=== PATIENT | male | born 1970 | race Caucasian/White ===

== ENCOUNTER 2016-12-13 18:14 | Emergency (ER) | payer BC ==
[~2016-12-13] VITALS: Ht 185.4 cm; Wt 83.0 kg
[2016-12-13 18:16] VITALS: BP 145/90; PULSE 80; RESP 20; TEMP 97.9; O2SAT 96
--- NOTE | 2016-12-13 19:00 | PD ---
Physical Exam Date Seen by Provider: Dec 13, 2016 Time Seen by Provider: 18:57 Narrative Patient seen in Triage with Hx. injury to base of Left 3rd finger with Oyster Shucking Knife last night. Patient now has pain, swelling and decreased ROM of the same finger. Patient was seen by his PCP and referred here to see hand surgeon, Dr. Beard, who has been spoken to already by PCP. Vitals Stable. Patient awaiting bed placement. Data Data Last Documented VS Vital Signs Date Time Temp Pulse Resp B/P Pulse Ox O2 Delivery O2 Flow Rate FiO2 12/13/16 18:16 97.9 80 20 145/90 96 Room Air [facility] Medical Record Reviewed: Yes Supervised Visit with SHABBIR: Yes Condition: Stable Gomez Banda Dec 13, 2016 19:00
== END 2016-12-13 21:07 | disposition left against medical advice (07) ==
LOC: NED 18:14
DX: S04.32XA Injury of trigeminal nerve, left side, initial encounter (principal); W26.0XXA Contact with knife, initial encounter; Y93.9 Activity, unspecified; Y92.9 Unspecified place or not applicable; Y99.9 Unspecified external cause status
CPT/HCPCS: 99282

== ENCOUNTER 2016-12-13 22:01 | Inpatient (IN) | payer BC ==
[~2016-12-13] VITALS: Ht 185.4 cm; Wt 82.0 kg
[2016-12-13 22:02] VITALS: BP 161/91; PULSE 74; RESP 18; TEMP 97.9; O2SAT 97
[2016-12-13] MEDS ORDERED: SODIUM CHLOR 0.9% 1000 ML INJ 1,000 ML IV SCH (22:30)
[2016-12-13 22:56] LABS: AUTOMATED NEUTROPHIL # 4.1 TH/MM3 (1.8-7.7); BASOPHIL % 0.5 % (0.0-2.0); EOSINOPHIL # 0.4 TH/MM3 (0-0.4); EOSINOPHIL % 4.5 % (0.0-4.0); HEMATOCRIT 44.4 % (39.0-51.0); HEMO FLAGS DIFF FINAL; LYMPH % 38.8 % (9.0-44.0); LYMPHOCYTE # 3.2 TH/MM3 (1.0-4.8); MEAN CELL VOLUME 94.1 FL (80.0-100.0); MEAN CORPUSCULAR HEMOGLOBIN 32.7 PG (27.0-34.0); MEAN CORPUSCULAR HGB CONC 34.8 % (32.0-36.0); MONO % 6.7 % (0.0-8.0); NEUT % 49.5 % (16.0-70.0); PLATELET COUNT 197 TH/MM3 (150-450); RED BLOOD COUNT 4.72 MIL/MM3 (4.50-5.90); RED CELL DISTRIBUTION WIDTH 13.2 % (11.6-17.2); WHITE BLOOD COUNT 8.2 TH/MM3 (4.0-11.0)
[2016-12-13 23:10] LABS: BICARBONATE 29.2 MEQ/L (21.0-32.0); POTASSIUM 4.1 MEQ/L (3.5-5.1)
--- NOTE | 2016-12-13 23:19 | PD ---
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 Duration about 1-1/2 days. He has had increasing pain in the left hand with some pain extending to the third digit. Pain is constant. It's worse with range of motion. He's had no fever. His last tetanus was 7 years prior. He saw his primary care provider who advised him to come to the ER immediately to be seen by hand surgery. [facility] Past Medical History Medical History: Denies Significant Hx Diminished Hearing: No Tetanus Vaccination: Unknown Influenza Vaccination: No Past Surgical History Oral Surgery: Yes (WISDOM TEETH) Other Surgery: Yes (DEBRIDEMENT OF RIGHT FOREARM) Social History Alcohol Use: Yes (SOCIALLY) Tobacco Use: Yes (1PPD) Substance Use: No Allergies-Medications (Allergen,Severity, Reaction): Coded Allergies: Codeine (Verified Allergy, Severe, 12/13/16) Reported Meds & Prescriptions Reported Meds & Active Scripts Active No Active Prescriptions or Reported Medications Review of Systems Except as stated in HPI: all other systems reviewed are Neg General / Constitutional: No: Fever Skin: Positive Lesions Physical Exam Narrative GENERAL: 46-year-old male well-nourished well-developed SKIN: Focused skin assessment warm/dry. Approximate 1 cm linear lesion along the palmar overlying the third metacarpal with minimal swelling extending to the proximal portion of the middle phalanx. HEAD: Atraumatic. Normocephalic. EYES: Pupils equal and round. No scleral icterus. No injection or drainage. ENT: No nasal bleeding or discharge. Mucous membranes pink and moist. NECK: Trachea midline. No JVD. CARDIOVASCULAR: Regular rate and rhythm. No murmur appreciated. RESPIRATORY: No accessory muscle use. Clear to auscultation. Breath sounds equal bilaterally. GASTROINTESTINAL: Abdomen soft, non-tender, nondistended. Hepatic and splenic margins not palpable. MUSCULOSKELETAL: No obvious deformities. No clubbing. Approximate 1 cm linear lesion along the palmar overlying the third metacarpal with minimal swelling extending to the proximal portion of the third middle phalanx. Minimal flexion of the left third digit at rest noted. +Tenderness with passive ROM. No erythema. NEUROLOGICAL: Awake and alert. No obvious cranial nerve deficits. Motor grossly within normal limits. Normal speech. PSYCHIATRIC: Appropriate mood and affect; insight and judgment normal. Data Data Last Documented VS Vital Signs Date Time Temp Pulse Resp B/P Pulse Ox O2 Delivery O2 Flow Rate FiO2 12/13/16 22:02 97.9 74 18 161/91 97 Vital signs reviewed Orders Basic Metabolic Panel (Bmp) (12/13/16 22:25) Complete Blood Count With Diff (12/13/16 22:25) Iv Access Insert/Monitor (12/13/16 22:25) Sodium Chlor 0.9% 1000 Ml Inj (Ns 1000 M (12/13/16 22:30) Cefepime Inj (Maxipime Inj) (12/13/16 23:45) Doxycycline Inj (Vibramycin Inj) (12/13/16 23:45) Admit Order (Ed Use Only) (12/14/16 00:13) Consult Hand Surgery (12/14/16 ) Labs Laboratory Tests Test 12/13/16 22:41 White Blood Count 8.2 TH/MM3 Red Blood Count 4.72 MIL/MM3 Hemoglobin 15.4 GM/DL Hematocrit 44.4 % Mean Corpuscular Volume 94.1 FL Mean Corpuscular Hemoglobin 32.7 PG Mean Corpuscular Hemoglobin 34.8 % Concent Red Cell Distribution Width 13.2 % Platelet Count 197 TH/MM3 Mean Platelet Volume 7.4 FL Neutrophils (%) (Auto) 49.5 % Lymphocytes (%) (Auto) 38.8 % Monocytes (%) (Auto) 6.7 % Eosinophils (%) (Auto) 4.5 % Basophils (%) (Auto) 0.5 % Neutrophils # (Auto) 4.1 TH/MM3 Lymphocytes # (Auto) 3.2 TH/MM3 Monocytes # (Auto) 0.5 TH/MM3 Eosinophils # (Auto) 0.4 TH/MM3 Basophils # (Auto) 0.0 TH/MM3 CBC Comment DIFF FINAL Differential Comment Sodium Level 140 MEQ/L Potassium Level 4.1 MEQ/L Chloride Level 105 MEQ/L Carbon Dioxide Level 29.2 MEQ/L Anion Gap 6 MEQ/L Blood Urea Nitrogen 17 MG/DL Creatinine 0.88 MG/DL Estimat Glomerular Filtration 94 ML/MIN Rate Random Glucose 152 MG/DL Calcium Level 8.3 MG/DL Erythrocyte Sedimentation Rate 1 mm/hr C-Reactive Protein 0.37 MG/DL MDM Medical Decision Making Medical Screen Exam Complete: Yes Emergency Medical Condition: Yes Differential Diagnosis Cellulitis, flexor tenosynovitis, abscess Narrative Course CBC & BMP Diagram 12/13/16 22:41 Case d/w Dr Beard of hand sx who requests NPO p MN for operative repair in morning. Cefepime and doxycycline started. D/w Emiliano Escobar, admit to Dr Griffin. Diagnosis Primary Impression: Flexor tenosynovitis of finger Admitting Information Admitting Physician Requests: Observation Scripts No Active Prescriptions or Reported Meds Nnamdi Wheeler MD Dec 13, 2016 23:19
[2016-12-13] MEDS ORDERED: DOXYCYCLINE INJ 200 MG in SODIUM CHLOR 0.9% 250 ML INJ 250 ML IV ONE (23:45)
[2016-12-13] MEDS ORDERED: CEFEPIME INJ 2,000 MG in SODIUM CHLORIDE 0.9% INJ 100 ML IV ONE (23:45)
[2016-12-14] VITALS (7 sets, daily range): BP systolic 118–140; BP diastolic 72–86; PULSE 67–77; RESP 14–19; TEMP 96.3–98.1; O2SAT 94–98
--- NOTE | 2016-12-14 01:01 | RADRPT ---
EXAM DATE/TIME: 12/14/2016 00:29 [place] COMPARISON: No previous studies available for comparison. INDICATIONS : Patient stuck oyster knife into hand on accident. Pain and small entry laceration at 3rd MCPJ on ante rior aspect of hand. MEDICAL HISTORY : None. SURGICAL HISTORY : None. ENCOUNTER: Initial ACUITY: 2 days PAIN SCORE: 3/10 LOCATION: Left Hand FINDINGS: Three views of the left hand demonstrate no fracture or dislocation. Mineralization is within normal limits and there is no significant arthropathy. No soft tissue abnormality or radiopaque foreign body is identified. CONCLUSION: No acute abnormality is identified and no radiopaque foreign body is seen. Emiliano Azul MD on December 14, 2016 at 0:57 Board Certified Radiologist. This report was verified electronically.
[2016-12-14] MEDS: SODIUM CHLOR 0.9% 1000 ML INJ 1,000 ML IV SCH ×3 (01:11→19:51)
[2016-12-14] MEDS ORDERED: SODIUM CHLORIDE 0.9% FLUSH 10 ML FLUSH IV FLUSH PRN (01:15)
[2016-12-14] MEDS ORDERED: ONDANSETRON HCL 4 MG/2 ML VIAL IVP PRN (01:15)
[2016-12-14] MEDS ORDERED: MAGNESIUM HYDROXIDE SUSP 30 ML CUP PO PRN (01:15)
[2016-12-14] MEDS ORDERED: SENNOSIDES 8.6 MG TAB PO PRN (01:15)
[2016-12-14] MEDS ORDERED: NALOXONE HCL 0.4 MG/ML AMP IV PRN (01:15)
[2016-12-14] MEDS ORDERED: TEMAZEPAM 15 MG CAP PO PRN (01:15)
[2016-12-14] MEDS ORDERED: CEFEPIME INJ 2,000 MG in SODIUM CHLORIDE 0.9% INJ 100 ML IV SCH (08:00)
[2016-12-14] MEDS: SODIUM CHLORIDE 0.9% FLUSH 10 ML FLUSH IV FLUSH SCH ×2 (08:51→19:50)
--- NOTE | 2016-12-14 08:53 | MH ---
cc: VERN GRIFFIN DATE OF ADMISSION 12/14/2016 DATE OF 1970 CHIEF COMPLAINT Left hand injury accidental TRAVEL IN THE LAST 30 DAYS None HISTORY OF PRESENT ILLNESS This is a pleasant 46 year-old white male who accidentally stabbed himself in the palm of his hand with a knife while attempting to open oysters. The patient is, according to the record, right hand dominant. Since the accidental stabbing has occurred, the patient has noted consistent constant pain with swelling in the middle finger and decreased range of motion. The patient did see his PCP who recommended he come to the emergency room and be seen. The patient denies any chest pain. No shortness of breath. No headache. No fevers. No nausea, vomiting, diarrhea or constipation. The patient notes that he has been fairly healthy all of his life and has been seen by the Ortho hand consulting physician for hand surgery this a.m. He is currently NPO. MEDICAL HISTORY Includes: 1. Tobacco abuse 2. Social ETOH otherwise no acute issues. PAST SURGICAL HISTORY 1. [place] teeth 2. Debridement of the right forearm ALLERGIES CODEINE MEDICATIONS None FAMILY HISTORY Parents are healthy. No particular medical issues. SOCIAL HISTORY The patient is , currently lives with his . A pack a day tobacco user. Social alcohol intake. No illicit drugs. REVIEW OF SYSTEMS A 12-point review was obtained, positives include left hand pain with some mild middle finger edema, some limited range of motion in that finger. Otherwise negative and unremarkable systems. PHYSICAL EXAM VITAL SIGNS: Temp is 97.1, pulse 70, respirations 14, blood pressure 129/74. Initially on ER admission 161/91, but has come down on its own without any treatment regimen. O2 sat 96% on room air. GENERAL: Well-nourished, well-developed white male who looks to be his stated age resting on the stretcher. SKIN: Warm and dry. An approximately 1 cm stab wound with minimal swelling at this site. Mild swelling noted at the proximal portion of the middle phalange. HEENT: Atraumatic, normocephalic. PERRLA 3. Mucous membranes are pink and moist. NECK: Midline. CARDIOVASCULAR: Regular rate and rhythm. No murmurs, rubs or gallops heard. RESPIRATORY: Essentially clear anteriorly and posteriorly. No wheezes, rales or rhonchi. ABDOMEN: Soft, nontender and nondistended. Active bowel sounds. MUSCULOSKELETAL: He moves his right arm and both legs with purpose. He can move the other fingers on his left hand. Currently no erythema. NEUROLOGIC: He is alert and oriented. Anxious to get out of the hospital as soon as possible. Speech is normal. PSYCHIATRIC: Affect and mood are normal. DIAGNOSTIC DATA WBC count 8.2, RBC 4.72, hemoglobin 15.4, hematocrit 44.4, platelet count 197. All other blood counts are normal except for eosinophil percentage 4.5. Chemistry sodium 140, potassium 4.1, chloride 105, random glucose is 152, calcium is 8.3, C-reactive protein 0.37. IMAGING Hand x-ray shows no acute abnormality, no foreign body seen. ASSESSMENT AND PLAN 1. Left hand middle phalange cellulitis with possible flexor tenosynovitis with possible abscess. 2. Tobacco abuse 3. ETOH use 4. Hyperglycemia mild without known diabetes PLAN Our plan is to admit for inpatient status due to surgical procedure. Ortho has been consulted for their expert opinion. The patient is NPO and plan is for surgical procedure this a.m. to open and irrigate. In the emergency room, the patient has had initial lab for monitoring. He has received Cefepime and Doxycycline IV, gently hydration for preop. As needed medications will be given for pain, nausea, sleep and bowel regimen. Currently the patient is placed on Ancef 2000 mg IV q8. The patient can be out of bed with assistance. The patient is requesting to go home postop. Depending on the course of treatment, those decisions will be made after surgery. Currently the patient is full code, full aggressive care. We will follow his needs. Dictated by: JOSH Ferrara Vern Griffin MD JP/SCARLET /8:04 AM /8:26 AM Patient seen and examined as above Chart reviewed Medication labs and radiological data reviewed Notes reviewed Plan of care discussed with JOSH Discussed with RN Discussed with patient Appreciate consultants input VINITA
[2016-12-14] MEDS ORDERED: PROPOFOL 200 MG/20 ML AMP IV ONE (12:00)
[2016-12-14] MEDS: DOXYCYCLINE INJ 100 MG in SODIUM CHLORIDE 0.9% INJ 100 ML IV SCH (13:00)
[2016-12-14] MEDS ORDERED: LIDOCAINE HCL 2% 50 ML VIAL ONE (13:44)
[2016-12-14] MEDS ORDERED: BUPIVACAINE HCL PF 0.5% 30 ML VIAL ONE (13:44)
[2016-12-14] MEDS ORDERED: MIDAZOLAM HCL 2 MG/2 ML VIAL ONE (13:53)
[2016-12-14] MEDS ORDERED: FAMOTIDINE 20 MG/2 ML VIAL ONE (13:53)
[2016-12-14] MEDS ORDERED: NEOMYCIN/POLYMYXIN 1 ML G.U. IRRIGANT TOPICAL ONE (14:47)
[2016-12-14] MEDS ORDERED: DO NOT ADM ANY ANTICOAGULANT DRUGS PRN (15:53)
[2016-12-14] MEDS ORDERED: *morphine SULFATE 8 MG/ML PERIprocedure ONLY ONE ×2 (15:59→16:20)
[2016-12-14] MEDS: ACETAMINOPHEN 325 MG TAB PO PRN ×2 (18:18→23:10)
--- NOTE | 2016-12-14 18:53 | PD.ORT.PN ---
Subjective Subjective Remarks Patient reports improvement in range of motion of finger after IV Ab but persistent pain and swelling. Objective Vitals Vital Signs Date Time Temp Pulse Resp B/P Pulse Ox O2 Delivery O2 Flow Rate FiO2 12/14/16 17:03 96.3 77 19 123/83 94 12/14/16 16:35 75 18 146/88 98 Room Air 12/14/16 16:30 73 18 140/86 97 Room Air 12/14/16 16:15 78 18 129/75 97 Room Air 12/14/16 16:00 73 18 127/77 97 Room Air 12/14/16 15:55 97.5 76 18 147/91 97 Room Air 12/14/16 11:00 97.9 70 14 118/81 97 12/14/16 10:01 98.1 72 16 140/86 98 12/14/16 07:52 97.1 70 14 129/74 96 Room Air 12/14/16 05:30 70 14 130/72 96 Room Air 12/14/16 01:22 71 14 130/77 95 Room Air 12/13/16 22:02 97.9 74 18 161/91 97 I/O 12/13/16 12/13/16 12/13/16 12/14/16 12/14/16 12/14/16 07:00 15:00 23:00 07:00 15:00 23:00 Intake Total 900 ml Output Total 5 ml Balance 895 ml Intake Other 900 ml Output Estimated Blood Loss 5 ml Result Diagram: 12/13/16 2241 12/13/16 2241 Imaging Last 24 hours Impressions Hand X-Ray 12/14/16 0000 Signed Impressions: Service Date/Time: Wednesday, December 14, 2016 00:29 - CONCLUSION: No acute abnormality is identified and no radiopaque foreign body is seen. Emiliano Azul MD Objective Remarks Dressing in place, <2 sec capillary refill, able to wiggle finger Assessment & Plan Assessment and Plan POD0 s/p I&D left middle finger flexor tendon sheath with purulence in flexor tendon sheath -Follow cultures, appreciate ID assistance -Packing placed in palm, plan to change dressing tomorrow -Patient will likely need to stay in the hospital for IV Ab at least through the weekend -will continue to follow, likely followup in [facility] on Sat,Estefanía Mac MD Dec 14, 2016 18:53
[2016-12-14] MEDS: CEFEPIME INJ 2,000 MG in SODIUM CHLORIDE 0.9% INJ 100 ML IV SCH (19:50)
[2016-12-14] MEDS ORDERED: KETOROLAC TROMETHAMINE 30 MG/ML (IVP) VIAL IV PUSH SCH (23:45)
[2016-12-15 00:22] VITALS: BP 116/70; PULSE 64; RESP 17; TEMP 96.9; O2SAT 97
[2016-12-15] MEDS: DOXYCYCLINE INJ 100 MG in SODIUM CHLORIDE 0.9% INJ 100 ML IV SCH ×2 (00:24→14:40)
[2016-12-15] MEDS: CEFEPIME INJ 2,000 MG in SODIUM CHLORIDE 0.9% INJ 100 ML IV SCH ×3 (04:48→19:56)
[2016-12-15 04:50] VITALS: BP 117/76; PULSE 67; RESP 17; TEMP 97.3; O2SAT 97
[2016-12-15 08:00] VITALS: BP 141/90; PULSE 72; RESP 16; TEMP 97.9; O2SAT 99
[2016-12-15] MEDS: SODIUM CHLORIDE 0.9% FLUSH 10 ML FLUSH IV FLUSH SCH ×2 (09:00→19:56)
[2016-12-15] MEDS: ACETAMINOPHEN 325 MG TAB PO PRN ×3 (10:24→19:57)
[2016-12-15] MEDS: KETOROLAC TROMETHAMINE 30 MG/ML (IVP) VIAL IV PUSH PRN ×2 (10:25→17:34)
--- NOTE | 2016-12-15 11:48 | HHI.PR ---
Subjective Subjective Remarks left hand painful wants to take shower no fever no cp no sob no acute changes overnight family at [facility], asking about dc plans. Review of Systems Constitutional Constitutional Remarks 12 point ROS completed, negative except as noted above Vitals/Results Intake & Output 12/14/16 12/14/16 12/15/16 15:00 23:00 07:00 Intake Total 1340 ml 892 ml Output Total 5 ml Balance 1335 ml 892 ml Intake Oral 240 ml 120 ml IV Total 200 ml 772 ml Other 900 ml Output Estimated Blood Loss 5 ml # Voids 1 2 # Bowel Movements 0 0 Vital Signs Vital Signs Date Time Temp Pulse Resp B/P Pulse Ox O2 Delivery O2 Flow Rate FiO2 12/15/16 08:00 97.9 72 16 141/90 99 12/15/16 04:50 97.3 67 17 117/76 97 12/15/16 00:22 96.9 64 17 116/70 97 12/14/16 20:30 97.0 67 17 124/79 96 12/14/16 17:03 96.3 77 19 123/83 94 12/14/16 16:35 75 18 146/88 98 Room Air 12/14/16 16:30 73 18 140/86 97 Room Air 12/14/16 16:15 78 18 129/75 97 Room Air 12/14/16 16:00 73 18 127/77 97 Room Air 12/14/16 15:55 97.5 76 18 147/91 97 Room Air CBC/BMP: 12/13/16 2241 12/13/16 2241 Microbiology Microbiology 12/14/16 Gram Stain - Final, Resulted 12/14/16 Wound Culture, Resulted Pending 12/14/16 Acid Fast Stain, Received Pending 12/14/16 Mycobacterial Culture, Received Pending 12/14/16 Fungal Smear - Final, Resulted NO FUNGAL ELEMENTS SEEN. 12/14/16 Fungal Culture, Resulted Pending 12/14/16 Gram Stain - Final, Resulted 12/14/16 Wound Culture, Resulted Pending 12/14/16 Acid Fast Stain, Received Pending 12/14/16 Mycobacterial Culture, Received Pending 12/14/16 Fungal Smear - Final, Resulted NO FUNGAL ELEMENTS SEEN. 12/14/16 Fungal Culture, Resulted Pending Physical Exam General General Appearance: Well Developed, Well Nourished, No Acute Distress, Comfortable Eyes Eye Exam: Pupils Equal, Pupils Reactive Ears & Nose Ears & Nose Exam: Nasal Mucosa Spiro Neck Neck Exam: Neck Supple, Trachea Midline Pulmonary Resp Exam: Clear Bilaterally, No Distress Cardiology CV Exam: Regular, Good Perfusion Gastrointestinal/Abdomen GI Exam: Soft, Non-Tender, Bowel Sounds Present, Non-Distended Musculoskeletal MS Remarks left hand with dressing, intact sensation Integumentary Skin Exam: Warm, Dry Extremeties Extremities Exam: No Edema, Pedal Pulses Palpable Neurologic Neuro Exam: Alert, Awake, Oriented, Speech Clear, Moving All Extremities, No Focal Deficits Psychiatric Psych Exam: Appropriate Responses VTE Prophylaxis VTE Prophylaxis Device: SCDs Assessment/Plan Problem List: (1) Left hand middle phalange cellulitis with possible flexor tenosynovitis with possible abscess. (2) Tobacco abuse (3) Hyperglycemia mild without known diabetes Assessment/Plan POD1 s/p I&D left middle finger flexor tendon sheath with purulence in flexor tendon sheath 12/14 Add Toradol for pain management wound care per surgery keep arm elevated follow cultures, negative so far continue abx ok to shower, nurse to cover arm follow cultures D/W RN D/W Dr. Griffin D/W pt. This patient was seen by myself and Dr. Griffin, this note is written on his behalf. Yanet Pichardo Dec 15, 2016 11:48
[2016-12-15 12:00] VITALS: BP_SYST 122; BP_SYST 124; BP_DIAS 70; BP_DIAS 73; PULSE 70; PULSE 73; RESP 16; RESP 20; TEMP 97.8; TEMP 98; O2SAT 97; O2SAT 98
--- NOTE | 2016-12-15 14:56 | PD.ORT.PN ---
Subjective Subjective Remarks Patient reports pain left middle finger, Controlled by Toradol. Denies paresthesias. Objective Vitals Vital Signs Date Time Temp Pulse Resp B/P Pulse Ox O2 Delivery O2 Flow Rate FiO2 12/15/16 08:00 97.9 72 16 141/90 99 12/15/16 04:50 97.3 67 17 117/76 97 12/15/16 00:22 96.9 64 17 116/70 97 12/14/16 20:30 97.0 67 17 124/79 96 12/14/16 17:03 96.3 77 19 123/83 94 12/14/16 16:35 75 18 146/88 98 Room Air 12/14/16 16:30 73 18 140/86 97 Room Air 12/14/16 16:15 78 18 129/75 97 Room Air 12/14/16 16:00 73 18 127/77 97 Room Air 12/14/16 15:55 97.5 76 18 147/91 97 Room Air I/O 12/14/16 12/14/16 12/14/16 12/15/16 12/15/16 12/15/16 07:00 15:00 23:00 07:00 15:00 23:00 Intake Total 1340 ml 892 ml Output Total 5 ml Balance 1335 ml 892 ml Intake Oral 240 ml 120 ml IV Total 200 ml 772 ml Other 900 ml Output Estimated Blood Loss 5 ml # Voids 1 2 # Bowel Movements 0 0 Result Diagram: 12/13/16 2241 12/13/16 2241 Imaging Last 24 hours Impressions Hand X-Ray 12/14/16 0000 Signed Impressions: Service Date/Time: Wednesday, December 14, 2016 00:29 - CONCLUSION: No acute abnormality is identified and no radiopaque foreign body is seen. Emiliano Azul MD Objective Remarks Dressing changed, Packing pulled back but not removed with some purulent drainage, function intact fds, fdp. persistent pain with ROM left middle finger , <2 sec capillary refill, sitlt radial and ulnar sides left middle finger Assessment & Plan Assessment and Plan POD1 s/p I&D left middle finger flexor tendon sheath with purulence in flexor tendon sheath -Follow cultures, appreciate ID assistance -Dressing changed, plan to change dressing /2 -Possible d/c 4/2 on oral ab or with PICC line pending ID evaluation Estefanía Beard MD Dec 15, 2016 14:56
[2016-12-15 16:00] VITALS: BP 122/73; PULSE 73; RESP 16; TEMP 97.8; O2SAT 97
[2016-12-15 20:25] VITALS: BP 148/89; PULSE 74; RESP 21; TEMP 97.7; O2SAT 97
--- NOTE | 2016-12-15 22:30 | PD.ID.CON ---
History of Present Illness Service ID Consult Requested By Dr Beard Reason for Consult R hand infection sp oyster cut Primary Care Physician Audrey Vargas DO Diagnoses: History of Present Illness 46 yo male with unremarkable past med histry cut his L hand while cutting oysters on Sat He immedeatly noted humberto which got worse over next 24 hrs andf on he presented to ER He developped pain, swelling redmen=ss of L hand ad L infex finger He was started on abx (cefepime, levaquine) and taked to OR He feels better His cultures are negtive No fever Pt was not given dT booster i ER His last booster was 6-7 yrs ago Review of Systems Except as stated in HPI: all other systems reviewed are Neg Past Family Social History Allergies: Coded Allergies: Codeine (Verified Allergy, Severe, 12/13/16) Past Medical History unremarkeble Past Surgical History R knee repair Active Ordered Medications cefepime doxy Family History Non-Contributory. Social History + Tobacco. 1 ppd socially ETOH. No Illicit Drugs. Physical Exam Vital Signs Vital Signs Date Time Temp Pulse Resp B/P Pulse Ox O2 Delivery O2 Flow Rate FiO2 12/15/16 20:25 97.7 74 21 148/89 97 12/15/16 16:00 97.8 73 16 122/73 97 12/15/16 12:00 97.8 73 20 122/73 97 12/15/16 12:00 98.0 70 16 124/70 98 12/15/16 08:00 97.9 72 16 141/90 99 12/15/16 04:50 97.3 67 17 117/76 97 12/15/16 00:22 96.9 64 17 116/70 97 Physical Exam CONSTITUTIONAL/GENERAL: This is an adequately nourished patient, in no apparent distress. TUBES/LINES/DRAINS: SKIN: No jaundice, rashes, or lesions. . Skin temperature appropriate. Not diaphoretic. HEAD: Atraumatic. Normocephalic. EYES: Pupils equal and round and reactive. Extraocular motions intact. No scleral icterus. No injection or drainage. Fundi not examined. ENT: Hearing grossly normal. Nose without bleeding or purulent drainage. Throat without visible erythema, exudates, masses, or lesions. NECK: Trachea midline. Supple, nontender. No palpable thyroid enlargement or nodularity. CARDIOVASCULAR: Regular rate and rhythm without murmurs, gallops, or rubs. No JVD. Peripheral pulses symmetric. RESPIRATORY/CHEST: Symmetric, unlabored respirations. Clear to auscultation. Breath sounds equal bilaterally. No wheezes, rales, or rhonchi. GASTROINTESTINAL: Abdomen soft, non-tender, nondistended. No hepato-splenomegaly , or palpable masses. No guarding. Bowel sounds present. GENITOURINARY: Without palpable bladder distension. Joiner catheter in place. MUSCULOSKELETAL: Extremities without clubbing, cyanosis, or edema. Minimal edemma noted of L hand L M F with nice well alpproximated healing incision Minmal serosang dc on fressing on palmar incisio LYMPHATICS: No palpable cervical or supraclavicular adenopathy. NEUROLOGICAL: Awake and alert. Motor and sensory grossly within normal limits. Follows commands. Cognitively sharp. Moves all extremities. PSYCHIATRIC: No obvious anxiety/depression. no apparent hallucinations or other psychotic thought process. Laboratory Date/Time Procedure Status Source Growth 12/14/16 14:56 Gram Stain - Final Resulted Wound Finger 12/14/16 14:56 Wound Culture - Preliminary Resulted Wound Finger NO GROWTH IN 24 HOURS. 12/14/16 14:56 Fungal Smear - Final Resulted Wound Finger NO FUNGAL ELEMENTS SEEN. 12/14/16 14:56 Fungal Culture Resulted Wound Finger Pending 12/14/16 14:56 Acid Fast Stain Received Wound Finger Pending 12/14/16 14:56 Mycobacterial Culture Received Wound Finger Pending Result Diagram: 12/13/16 2241 12/13/16 2241 Imaging Last Impressions Hand X-Ray 12/14/16 0000 Signed Impressions: Service Date/Time: Wednesday, December 14, 2016 00:29 - CONCLUSION: No acute abnormality is identified and no radiopaque foreign body is seen. Emiliano Azul MD Assessment and Plan Assessment and Plan L middle finger flexor tenosinovitis following accidental stab wound, clx negastive @ 24 hrs Possible vibrio vulnificanc exposure (raw oysters) Contaminated (raw oysters) wound L hand with dT > 5 < 10 yrs ago cont current abx Anticipate dc on po abx tomorrow Discussed Condition With RN @ bs Meena Hamm MD Dec 15, 2016 22:30
--- NOTE | 2016-12-15 22:44 | MB ---
cc: SHYAM WATT DATE OF CONSULTATION 12/13/16 REASON FOR CONSULTATION Flexor tenosynovitis left middle finger after stab wound. HISTORY OF PRESENT ILLNESS Siena Lawler is a pleasant 46-year-old right-hand dominant male who states that he accidentally stabbed himself in the palm over the level of the A1 cy of the left middle finger when cleaning oysters. He states that the knife was tsering and dirty with oyster juice. This occurred the day prior to presentation. He states that he was not initially concerned, but earlier today while he was at work he was having increasing pain, swelling and difficulty moving the finger and called his primary care physician who requested that he come to the emergency room for evaluation for hand surgery. Upon evaluating the patient, he states he had just eaten crackers prior to presentation. He denies any paresthesias over the finger. He denies prior injuries to the left hand. He has had a prior sand blasting injury to the right forearm which required multiple surgeries by an outside physician. He is right hand dominant. He denies any fevers or chills. PAST MEDICAL HISTORY Denies PAST SURGICAL HISTORY Right forearm debridement and closure. SOCIAL HISTORY The patient smokes one pack per day. He uses alcohol socially. Denies drug use. 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 ALLERGIES CODEINE PHYSICAL EXAMINATION Temperature on evaluation 97.9, pulse 74, blood pressure 161/91. Exam of the left hand shows an approximately 1/2 cm laceration over the level of the A1 cy of the left middle finger. He is unable to fully extend the middle finger due to pain. He has pain with passive extension of the left middle finger. He is able to fire FDS and FDP but with pain. He is unable to make a full fist. Sensation intact on the radial and ulnar side. Less than 2-second capillary refill to the finger. No pain in the palm. No pain in the other fingers. LABORATORY DATA White count 8.2, CRP 0.37, ESR 1. PLAN A 46-year-old male status post a stab wound to the A1 cy of the left middle finger with concern for flexor tenosynovitis. Treatment options discussed with the patient. At this time, I recommend surgical intervention but as the patient is not n.p.o. I recommend admission for IV antibiotics and possible surgical intervention in the morning. The patient understands he is at risk for persistent infection, sepsis, tendon injury, persistent pain, paresthesias and he elects to proceed. MD RODOLFO Shi/ /9:56 PM /10:28 PM [facility]
[2016-12-16] MEDS: DOXYCYCLINE INJ 100 MG in SODIUM CHLORIDE 0.9% INJ 100 ML IV SCH ×2 (01:00→13:00)
[2016-12-16 01:02] VITALS: BP 109/77; PULSE 77; RESP 20; TEMP 96.7; O2SAT 96
[2016-12-16] MEDS: KETOROLAC TROMETHAMINE 30 MG/ML (IVP) VIAL IV PUSH PRN ×2 (02:00→09:00)
[2016-12-16 04:28] VITALS: BP 112/61; PULSE 74; RESP 20; TEMP 96.8; O2SAT 96
[2016-12-16] MEDS: CEFEPIME INJ 2,000 MG in SODIUM CHLORIDE 0.9% INJ 100 ML IV SCH (05:17)
[2016-12-16] MEDS: ACETAMINOPHEN 325 MG TAB PO PRN ×2 (05:21→14:08)
[2016-12-16 08:00] VITALS: BP 129/78; PULSE 70; RESP 16; TEMP 97; O2SAT 98
[2016-12-16] MEDS: SODIUM CHLORIDE 0.9% FLUSH 10 ML FLUSH IV FLUSH SCH (09:00)
--- NOTE | 2016-12-16 10:35 | HHI.PR ---
Subjective Subjective Remarks pain stable, Toradol working well ambulating in room, very anxious to leave, already dressed informed he needs to stay to have dressing change per Dr. Beard doesn't want C, wants to do dressing change. Will find out if oka no fever no cp no sob no diarrhea at bsd Review of Systems Constitutional Constitutional Remarks 12 point ROS completed, negative except as noted above Vitals/Results Intake & Output 12/15/16 12/15/16 12/16/16 15:00 23:00 07:00 Intake Total 600 ml 600 ml 360 ml Output Total 5 ml Balance 600 ml 595 ml 360 ml Intake Oral 600 ml 600 ml 360 ml Output Urine Total 5 ml # Voids 4 2 # Bowel Movements 0 0 0 Vital Signs Vital Signs Date Time Temp Pulse Resp B/P Pulse Ox O2 Delivery O2 Flow Rate FiO2 12/16/16 08:00 97.0 70 16 129/78 98 12/16/16 04:28 96.8 74 20 112/61 96 12/16/16 01:02 96.7 77 20 109/77 96 12/15/16 20:25 97.7 74 21 148/89 97 12/15/16 16:00 97.8 73 16 122/73 97 12/15/16 12:00 97.8 73 20 122/73 97 12/15/16 12:00 98.0 70 16 124/70 98 CBC/BMP: 12/13/16 2241 12/13/16 2241 Physical Exam General General Appearance: Well Developed, Well Nourished, No Acute Distress, Comfortable Eyes Eye Exam: Pupils Equal, Pupils Reactive Ears & Nose Ears & Nose Exam: Nasal Mucosa [facility] Neck Neck Exam: Neck Supple, Trachea Midline Pulmonary Resp Exam: Clear Bilaterally, No Distress Cardiology CV Exam: Regular, Good Perfusion Gastrointestinal/Abdomen GI Exam: Soft, Non-Tender, Bowel Sounds Present, Non-Distended Musculoskeletal MS Remarks left hand with dressing, intact sensation Integumentary Skin Exam: Warm, Dry Extremeties Extremities Exam: No Edema, Pedal Pulses Palpable Neurologic Neuro Exam: Alert, Awake, Oriented, Speech Clear, Moving All Extremities, No Focal Deficits Psychiatric Psych Exam: Appropriate Responses VTE Prophylaxis VTE Prophylaxis Device: SCDs Assessment/Plan Problem List: (1) Left hand middle phalange cellulitis with possible flexor tenosynovitis with possible abscess. (2) Tobacco abuse (3) Hyperglycemia mild without known diabetes Assessment/Plan POD2 s/p I&D left middle finger flexor tendon sheath with purulence in flexor tendon sheath 12/14 Toradol for pain management wound care per surgery, he is to have another dressing today keep arm elevated follow cultures, negative so far continue abx waiting for ID for final recommendations doesn't want HHC, wants to do wound care. Will find out if okay with Dr Chirag cowan. dc today after abx recommendations and wound care done D/W RN D/W Dr. Griffin D/W pt, This patient was seen by myself and Dr. Griffin, this note is written on his behalf. Yanet Pichardo Dec 16, 2016 10:35
[2016-12-16] MEDS ORDERED: KETO10 PO (10:39)
--- NOTE | 2016-12-16 10:39 | HHI.DCPOC ---
Discharge Care Plan Diagnosis: (1) Tobacco abuse (2) Hyperglycemia mild without known diabetes (3) Left hand middle phalange cellulitis with possible flexor tenosynovitis with possible abscess. Your Health Problems Are: Skin Breakdown Inflammation Swelling Goals to Promote Your Health * To prevent worsening of your condition and complications * To maintain your health at the optimal level Directions to Meet Your Goals Take your medications as prescribed Follow your dietary instruction Follow activity as directed Keep your appointments as scheduled Take your immunizations and boosters as scheduled If your symptoms worsen call your PCP, if no PCP go to Urgent Care Center or Emergency Room Smoking is Dangerous to Your Health. Avoid second hand smoke Call the 24-hour hour crisis hotline for domestic abuse at Yanet Pichardo. [facility] Dec 16, 2016 10:39
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
[2016-12-16] MEDS ORDERED: DIPHTH/TETANUS/ACEL PERTUSSIS (BOOSTER) 0.5 ML VIAL/PFS IM ONE (11:00)
[2016-12-16] MEDS ORDERED: DOXY1CAP91 PO (11:35)
[2016-12-16] MEDS ORDERED: LEVA750T PO (11:35)
[2016-12-16] MEDS ORDERED: LEVOFLOXACIN 750 MG TAB PO SCH (12:00)
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
== END 2016-12-16 14:59 | disposition home or self-care (01) | DRG 502 ==
LOC: NEPE 22:01 → NEDA 12-14 00:16 → OBSVTOIN 12-14 00:16 → NEDA 12-14 01:19 → NEDH 12-14 04:16 → NEPHCDU 12-14 10:05 → N06B 12-14 15:43
PROVIDERS: ADMIT Specialist; ATTEND Specialist
PROC: 0L980ZX Drainage of Left Hand Tendon, Open Approach, Diagnostic (ICD-10-PCS; principal; 2016-12-14 14:15)
DX: M65.142 Other infective (teno)synovitis, left hand (principal); F17.210 Nicotine dependence, cigarettes, uncomplicated; L03.012 Cellulitis of left finger; R73.9 Hyperglycemia, unspecified
CPT/HCPCS: 73130; 80048; 85025; 85652; 86140; 87015; 87070; 87102; 87116; 87205; 87206; 90715; 96374; 99282; J0692; J1885; J2250; J2270; J3010; J7030; J7050